=== PATIENT | female | born 1975 | race Caucasian/White ===

== ENCOUNTER → 2017-09-01 | Outpatient (CLI) | payer OTHER ==
[2017-09-01 15:31] LABS: Free Thyroxine 0.96 ng/dL (0.70-1.60)
[2017-09-01 15:33] LABS: Thyroid Stimulating Hormone 1.42 uIU/mL (0.360-4.800); Triiodothyronine, Free 2.98 pg/mL (2.18-3.98)
== END ==
LOC: LAB 11:29 → LAB SHORT 11:29
PROVIDERS: Obstetrics & Gynecology
DX: Z83.49 Family history of other endocrine, nutritional and metabolic diseases (principal)
CPT/HCPCS: 84439; 84443; 84481

== ENCOUNTER → 2020-09-03 | Outpatient (CLI) | payer OTHER ==
[2020-09-04 14:07] LABS: HPV 16 Negative (Negative); HPV 18 Negative (Negative); HPV OTHER HR TYPES Negative (Negative)
== END ==
LOC: LAB 15:39 → LAB SHORT 15:39
PROVIDERS: Obstetrics & Gynecology
DX: Z01.419 Encounter for gynecological examination (general) (routine) without abnormal findings (principal)
CPT/HCPCS: 87624; G0123

== ENCOUNTER → 2023-10-19 | Outpatient (CLI) | payer OTHER ==
[2023-10-28 13:59] LABS: HPV HIGH RISK BY TMA Not Detected; HPV SOURCE Vaginal
== END ==
LOC: LAB SHORT 12:14 → LAB 12:14
PROVIDERS: Obstetrics & Gynecology
DX: Z01.419 Encounter for gynecological examination (general) (routine) without abnormal findings (principal)
CPT/HCPCS: 87624; G0123